=== PATIENT | female | born 1975 | race Caucasian/White ===

== ENCOUNTER → 2018-04-24 | Outpatient (CLI) | payer BC ==
[~2018-04-24] MED LIST: BUTASPCAF PO; DIAZ10 PO; DOCU100 PO; OXYACE7.5T PO
== END ==
LOC: LAB SHORT 12:42 → LAB 12:42
PROVIDERS: Nurse Practitioner Family
DX: Z12.4 Encounter for screening for malignant neoplasm of cervix (principal)
CPT/HCPCS: G0123

== ENCOUNTER → 2020-04-05 | Outpatient (CLI) | payer BC | LOC: LAB 18:37 → LAB SHORT 18:37 | DX: L08.9 Local infection of the skin and subcutaneous tissue, unspecified (principal); L57.0 Actinic keratosis; L08.0 Pyoderma; L71.8 Other rosacea; L02.425 Furuncle of right lower limb; L02.426 Furuncle of left lower limb; D48.5 Neoplasm of uncertain behavior of skin; L91.8 Other hypertrophic disorders of the skin | CPT/HCPCS: 87070; 87205 ==

== ENCOUNTER 2020-10-06 10:02 | Day surgery (SDC) | payer BC ==
[~2020-10-06] VITALS: Ht 162.6 cm; Wt 94.7 kg
[~2020-10-06 10:02] MED LIST changes: +ALBU2.5V5 INH; +ALBU90OI INH; +DULO60 PO; +ELET40TA PO; +FLUT1DIS5 INH; +NURTEC ODT75 MG PO; +PROM25 PO; +PROPRANOLOL HC120 MG PO; +XYZAL5 MG PO
--- NOTE | 2020-10-06 10:54 | NUR ---
10/06/20 1054 Vianney Simons FIRST ATTEMPT MISSED BY ULICES IN THE RIGHT HAND. SECOND ATTEMPT SUCCESSFUL BY RN IN THE RIGTH WRIST. PT TOW.
== END 2020-10-06 12:08 | disposition home or self-care (01) ==
LOC: ORSCSDS 10:02
PROVIDERS: Student in an Organized Health Care Education/Training Program
PROC: 0DBN8ZX Excision of Sigmoid Colon, Via Natural or Artificial Opening Endoscopic, Diagnostic (ICD-10-PCS; principal; 2020-10-06 11:30)
DX: K92.1 Melena (principal); R10.32 Left lower quadrant pain; R19.4 Change in bowel habit; K63.5 Polyp of colon; K57.30 Diverticulosis of large intestine without perforation or abscess without bleeding; J45.909 Unspecified asthma, uncomplicated; Z87.891 Personal history of nicotine dependence; E66.9 Obesity, unspecified; Z68.36 Body mass index [BMI] 36.0-36.9, adult; F41.8 Other specified anxiety disorders; Z79.899 Other long term (current) drug therapy
CPT/HCPCS: 88305; J2704; J7120

== ENCOUNTER 2024-02-10 12:18 | Emergency (ER) | payer OTHER ==
[~2024-02-10] VITALS: Ht 162.6 cm; Wt 98.0 kg
[2024-02-10 12:29] VITALS: BP 158/100
[2024-02-10 13:13] LABS: BASOPHILS ABSOLUTE AUTO 0.03 K/mm3 (0.00-0.23); BASOPHILS PERCENT AUTO 1 % (0-2); EOSINOPHILS ABSOLUTE AUTO 0.34 K/mm3 (0.00-0.68); EOSINOPHILS PERCENT AUTO 6 % (0-6); Hematocrit 38.4 % (33.0-51.0); Hemoglobin 13.4 g/dL (11.5-16.0); IMMATURE GRAN ABSOLUTE AUTO 0.01 K/mm3 (0.00-0.10); IMMATURE GRAN PERCENT AUTO 0 % (0-1); LYMPHOCYTES ABSOLUTE AUTO 1.65 K/mm3 (0.84-5.20); LYMPHOCYTES PERCENT AUTO 30 % (21-46); MONOCYTES ABSOLUTE AUTO 0.42 K/mm3 (0.16-1.47); MONOCYTES PERCENT AUTO 8 % (4-13); Mean Corpuscular HGB 31.2 pg (26.0-34.0); Mean Corpuscular HGB Conc 34.9 g/dL (31.5-36.5); Mean Corpuscular Volume 89 fL (80-100); Mean Platelet Volume 10.3 fL (9.1-12.4); NEUTROPHILS ABSOLUTE AUTO 3.12 K/mm3 (1.96-9.15); NEUTROPHILS PERCENT AUTO 56 % (41-73); Platelet Count 146 K/mm3 (150-400); RDW Coefficient Variation 13.3 % (11.7-14.2); RDW Standard Deviation 43.8 fL (35.1-46.3); White Blood Cell Count 5.57 K/mm3 (4.00-11.30)
[2024-02-10 13:40] LABS: Albumin, Blood 4.1 g/dL (3.4-5.0); Albumin/Globulin Ratio 1.1 (0.8-1.8); Bilirubin, Total 0.6 mg/dL (0.1-1.0); Bun/Creatinine Ratio 17.6 (12.0-20.0); Calcium, Blood 9.4 mg/dL (8.5-10.1); Creatinine, Blood 0.68 mg/dL (0.40-1.00); Globulin, Blood 3.9 g/dL (2.2-4.0); Potassium, Blood 4.1 mmol/L (3.5-5.5)
[2024-02-10] MEDS ORDERED: Ondansetron HCl 2 MG / ML 2ML Vial IV ONE (15:25)
== END 2024-02-10 16:02 | disposition home or self-care (01) ==
LOC: ER 12:18
PROVIDERS: Physician Assistant
DX: K42.9 Umbilical hernia without obstruction or gangrene (principal); Z79.899 Other long term (current) drug therapy; Z88.5 Allergy status to narcotic agent; Z88.6 Allergy status to analgesic agent; Z87.891 Personal history of nicotine dependence
CPT/HCPCS: 74177; 80053; 85025; 99284-25; J2405; Q9967

== ENCOUNTER 2024-07-31 06:01 | Day surgery (SDC) | payer OTHER ==
[~2024-07-31] VITALS: Ht 162.6 cm; Wt 107.6 kg
[2024-07-31] VITALS (10 sets, daily range): BP systolic 91–136; BP diastolic 70–95
[~2024-07-31 06:01] MED LIST changes: +ATOR20 PO; +BUSPIRONE HCL7.5 M1 PO; +FAMO20 PO; +MONT10T PO; +NASACORT10.8 ML; +OMEP20ER PO; +SERT100 PO; +Zofran4 MG PO
[2024-07-31] MEDS ORDERED: Lactated Ringer's 1,000 ML IV SCH (06:25)
--- NOTE | 2024-07-31 06:31 | NUR ---
Ambulatory in Day SurgeryPre-Op teaching done. Pt verbalizes understanding. History, Chart, Medications and Allergies reviewed before start of procedure.Patient confirms NPO status and agrees with scheduled surgery. Patient reports completing Chlorhexadine shower X2 prior to admission to hospital.Patient States Post-Procedure ride home has been arranged.
[2024-07-31] MEDS ORDERED: propofoL 20 ML IV ONE (06:55)
[2024-07-31] MEDS ORDERED: FentaNYL Citrate 50 MCG/ML 2 ML Injection ONE ×2 (06:55→07:52)
[2024-07-31] MEDS ORDERED: Midazolam HCl 1MG / ML 2ML Vial ONE (06:56)
[2024-07-31] MEDS ORDERED: Lidocaine HCl 2% 20 ML MDV ONE (06:59)
[2024-07-31] MEDS ORDERED: Rocuronium Bromide 10 MG/ML 5ML Injection IV ONE ×2 (06:59→08:15)
[2024-07-31] MEDS ORDERED: Bupivacaine 0.5% HCl 5 MG/ML 30MLVIAL ONE (07:05)
[2024-07-31] MEDS ORDERED: Ketorolac Tromethamine 30mg Vial ONE (07:35)
[2024-07-31] MEDS ORDERED: Dexamethasone Sod Phos 10 MG/ML 1ML VIAL ONE (07:35)
[2024-07-31] MEDS ORDERED: Labetalol HCL 5 MG/ML 4ML Injection (Single Dose) ONE (07:59)
[2024-07-31] MEDS ORDERED: Sugammadex Sodium 200 MG/2ML SDV (100 MG/ML) ONE (08:44)
[2024-07-31] MEDS ORDERED: HYDROmorphone HCl/Pf 1MG SYR ONE (08:50)
[2024-07-31] MEDS ORDERED: OxyCODONE 5 mg/Acetamin 325 mg TABLET PO PRN (09:15)
--- NOTE | 2024-07-31 09:59 | NUR ---
DISCHARGE PT A&OX4/VSS/RA/C&DBS/FOLLOWS COMMANDS, DENIES PAIN, DENIES NAUSEA, IV DC'D, DC INS PROVIDED, COPY SENT, LEAVING VIA WC WITH PERSONAL PROPERTY TO GO HOME WITH /JUNIOR ACCOUNTANT.
== END 2024-07-31 23:00 | disposition home or self-care (01) ==
LOC: ORSCMMR 06:01 → ORD 07:30 → ORSCMMR 07:30
PROVIDERS: Surgery
PROC: 8E0W4CZ Robotic Assisted Procedure of Trunk Region, Percutaneous Endoscopic Approach (ICD-10-PCS; principal; 2024-07-31 07:30)
PROC: 0WUF4JZ Supplement Abdominal Wall with Synthetic Substitute, Percutaneous Endoscopic Approach (ICD-10-PCS; principal; 2024-07-31 07:30)
DX: K43.6 Other and unspecified ventral hernia with obstruction, without gangrene (principal); K42.9 Umbilical hernia without obstruction or gangrene; J45.909 Unspecified asthma, uncomplicated; K21.9 Gastro-esophageal reflux disease without esophagitis; Z79.899 Other long term (current) drug therapy; Z86.16 Personal history of COVID-19; Z87.891 Personal history of nicotine dependence
CPT/HCPCS: C1781; J1100; J1171; J1885; J2250; J2704; J3010; J7120

== ENCOUNTER 2024-09-01 12:11 | Day surgery (SDC) | payer OTHER ==
[~2024-09-01] VITALS: Ht 162.6 cm; Wt 108.2 kg
[~2024-09-01 12:11] MED LIST changes: +Lactated Ringer's 1,000 ML IV ONE; +propofoL 50 ML IV ONE
[2024-09-01] MEDS ORDERED: ALBU2.5V5 (12:46)
[2024-09-01] MEDS ORDERED: ALBU90OI (12:46)
[2024-09-01] MEDS ORDERED: HYDCHL12.5 (12:50)
[2024-09-01] MEDS ORDERED: BUTALB-ACETAMI1 EAC7 (12:50)
[2024-09-01] MEDS ORDERED: FLUT1DIS5 (12:51)
[2024-09-01] MEDS ORDERED: Lactated Ringer's 1,000 ML IV ONE (13:37)
[2024-09-01 14:32] VITALS: BP 112/88
== END 2024-09-01 14:33 | disposition home or self-care (01) ==
LOC: ORSCSDS 12:11
PROVIDERS: Surgery
PROC: 0DB68ZX Excision of Stomach, Via Natural or Artificial Opening Endoscopic, Diagnostic (ICD-10-PCS; principal; 2024-09-01 13:45)
PROC: 0DB58ZX Excision of Esophagus, Via Natural or Artificial Opening Endoscopic, Diagnostic (ICD-10-PCS; principal; 2024-09-01 13:45)
DX: K21.9 Gastro-esophageal reflux disease without esophagitis (principal); R13.14 Dysphagia, pharyngoesophageal phase; K44.9 Diaphragmatic hernia without obstruction or gangrene; F32.A Depression, unspecified; J45.909 Unspecified asthma, uncomplicated; Z79.899 Other long term (current) drug therapy
CPT/HCPCS: 88305; 88342; J2704; J7120

== ENCOUNTER → 2025-01-04 | Outpatient (CLI) | payer OTHER ==
[~2025-01-04] MED LIST changes: +ALBU2.5V5; +ALBU90OI; +BUTALB-ACETAMI1 EAC7; +FLUT1DIS5; +HYDCHL12.5; -Lactated Ringer's 1,000 ML IV ONE; -propofoL 50 ML IV ONE
[2025-01-04 19:25] LABS: BASOPHILS ABSOLUTE AUTO 0.04 K/mm3 (0.00-0.23); BASOPHILS PERCENT AUTO 1 % (0-2); EOSINOPHILS ABSOLUTE AUTO 0.45 K/mm3 (0.00-0.68); EOSINOPHILS PERCENT AUTO 8 % (0-6); Hematocrit 38.2 % (33.0-51.0); Hemoglobin 12.4 g/dL (11.5-16.0); IMMATURE GRAN ABSOLUTE AUTO 0.01 K/mm3 (0.00-0.10); IMMATURE GRAN PERCENT AUTO 0 % (0-1); LYMPHOCYTES ABSOLUTE AUTO 1.40 K/mm3 (0.84-5.20); LYMPHOCYTES PERCENT AUTO 26 % (21-46); MONOCYTES ABSOLUTE AUTO 0.45 K/mm3 (0.16-1.47); MONOCYTES PERCENT AUTO 8 % (4-13); Mean Corpuscular HGB Conc 32.5 g/dL (31.5-36.5); Mean Corpuscular Volume 84 fL (80-100); NEUTROPHILS ABSOLUTE AUTO 3.07 K/mm3 (1.96-9.15); NEUTROPHILS PERCENT AUTO 57 % (41-73); NRBC ABSOLUTE 0.00 K/mm3 (0.00-0.02); NRBC Auto 0.0 /100 WBC (0.0-0.2); Platelet Count 157 K/mm3 (150-400); RDW Coefficient Variation 14.7 % (11.7-14.2); RDW Standard Deviation 45.1 fL (35.1-46.3)
[2025-01-04 20:17] LABS: Alanine Aminotransfer (ALT/SGP 46 U/L (12-78); Albumin, Blood 4.2 g/dL (3.4-5.0); Albumin/Globulin Ratio 1.0 (0.8-1.8); Anion Gap 8 mmol/L (3-11); Aspartate Aminotrans (AST/SGOT 30 U/L (12-37); Bilirubin, Total 0.5 mg/dL (0.1-1.0); Blood Urea Nitrogen 14 mg/dL (8-24); CHOL/HDL RATIO 3.4; CO2, Blood 26 mmol/L (21-32); Calcium, Blood 9.2 mg/dL (8.5-10.1); Chloride, Blood 107 mmol/L (98-108); Cholesterol 189 mg/dL (50-200); Creatinine, Blood 0.70 mg/dL (0.40-1.00); Globulin, Blood 4.1 g/dL (2.2-4.0); Glucose, Blood 105 mg/dL (70-99); HDL Cholesterol 56 mg/dL (>39); LDL/HDL RATIO 1.7; Low Density Lipoprotein Chol 98 mg/dL (0-110); Potassium, Blood 4.0 mmol/L (3.5-5.5); Sodium, Blood 137 mmol/L (136-145); Thyroid Stimulating Hormone 1.760 uIU/mL (0.360-4.800); Total Protein, Blood 8.3 g/dL (6.4-8.2); Triglycerides 176 mg/dL (30-160); Very Low Density Lipoprot Chol 35 mg/dL (6-32)
== END | disposition home or self-care (01) ==
LOC: LAB SHORT 16:48 → LAB 16:48
PROVIDERS: Physician Assistant
DX: Z51.81 Encounter for therapeutic drug level monitoring (principal); Z79.899 Other long term (current) drug therapy
CPT/HCPCS: 80053; 80061; 82306; 83036; 84443; 85025